=== PATIENT | female | born 1940 | race Asian ===

== ENCOUNTER 2016-07-10 12:28 | Outpatient (CLI) | payer OTHER ==
[~2016-07-10 12:28] MED LIST: ALBU90AE13 INH; AMLO2.5T PO; AMLO5TAB PO; BREO ELLIPTA 101 INH INH; BUDE1AER5 INH; CALC500T57 PO; CARV6.25 PO; DIOVAN320 MG PO; EXFORGE1 TA3 PO; FURO20TA67 PO; GABA300C2 PO; HYDR25TA60 PO; LANSOPRAZOLE30 MG PO; LEVO0.0723 PO; LEXAPRO20 MG PO; LIPITOR10 MG PO; LOFIBRA54 MG PO; LUMIGAN0.01 % OP; MICRO-K10 MEQ PO; MYSOLINE50 MG PO; PANT40TA PO; PRED10TA27 PO; PREDNISONE20 MG PO; ROXICODONE15 M1 PO; SENNA LAX8.6 MG PO; SINGULAIR10 MG PO; SPIR50TA8 PO; TRAZ50TA36 PO; TUDORZA PR400 MG/ACT INH; UNITH DIRECT200 MCG PO; VIT C/BIOFLV1000 MG PO; XALATAN0.005 % OP; XOPENEX1.25 MG/3 IN
== END 2016-07-10 19:50 | disposition home or self-care (01) ==
LOC: RAD 12:28
DX: J45.998 Other asthma (principal)

== ENCOUNTER → 2016-10-13 02:50 | Outpatient (CLI) | payer OTHER | END | disposition home or self-care (01) | LOC: AMB 02:50 | DX: R04.0 Epistaxis (principal) ==

== ENCOUNTER 2016-12-20 02:46 | Outpatient (CLI) | payer OTHER | END 2016-12-20 03:06 | disposition short-term general hospital (02) | LOC: AMB 02:46 | DX: R10.84 Generalized abdominal pain (principal); R14.0 Abdominal distension (gaseous); R11.2 Nausea with vomiting, unspecified | CPT/HCPCS: A0425; A0427 ==